=== PATIENT | female | born 1995 | race Caucasian/White ===

== ENCOUNTER 2025-01-29 15:21 | Outpatient (CLI) | payer OTHER, SELFPAY | END 2025-01-29 15:22 | disposition home or self-care (01) | PROVIDERS: Visit Provider Physician Assistant | DX: O24.410 Gestational diabetes mellitus in pregnancy, diet controlled (principal) | CPT/HCPCS: 86592 ==

== ENCOUNTER 2025-02-10 08:36 | Outpatient (CLI) | payer OTHER, SELFPAY ==
--- NOTE | 2025-02-10 09:15 | CRLHL7_ITS ---
For Patients: As a result of the Century Cures Act, medical imaging exams and procedure reports are released immediately into your electronic medical record. You may view this report before your referring provider. If you have questions, please contact your health care provider. OB ULTRASOUND LMP: 06/15/2024. JENNY by LMP: 03/22/2025. GA: 34 w, 2 d. Single. Comparison: Outside facility. INDICATION: Gestational diabetes. TECHNIQUE: Real time grayscale imaging of the fetus was performed. Transabdominal. CERVIX: Not visualized. POSITIONING: Vertex. AMNIOTIC FLUID: 6.9 cm. SDP (N: greater than 2 x 1 cm) PLACENTA: Technique: Transabdominal. PLACENTA POSITION: Fundal. DOPPLER: heart rate: 157 bpm. BIOMETRY: BPD: 8.1 cm. 32 w, 3 d, 7 percent. HC: 31.1 cm. 34 w, 6 d, 27 percent. AC: 29.7 cm. 33 w, 4 d, 35 percent. FL: 6.4 cm. 33 w, 0 d, 12 percent. FL/AC ratio: 21.53 percent. HC/AC ratio: 1.05. EFW: 2200 g. Weight: 4 lbs, 14 oz. age by this US: 33 w, 3 d. JENNY by this US: 03/28/2025. Percentile by JENNY: 22 percent. IMPRESSION: 1. Sonographic gestational age 33 weeks 3 days and sonographic due date 03/28/2025. Sonographic age is 6 days behind the clinical age. 2. Estimated weight 22nd percentile. Abdominal circumference 35th percentile. Alli Otto M.D. Diagnostic Radiologist [email or web address] MANUELA/neema bethea/Dictated by: Alli Otto MD @ 02/10/2025 9:37:00 AM (Electronically Signed)
== END 2025-02-10 08:37 | disposition home or self-care (01) ==
LOC: US 08:37
PROVIDERS: Visit Provider Physician Assistant
DX: O24.419 Gestational diabetes mellitus in pregnancy, unspecified control (principal); O36.5930 Maternal care for other known or suspected poor fetal growth, third trimester, not applicable or unspecified; Z3A.33 33 weeks gestation of pregnancy
CPT/HCPCS: 76815; 82728

== ENCOUNTER 2025-02-24 16:00 | Outpatient (CLI) | payer OTHER, SELFPAY | END 2025-02-24 16:01 | disposition home or self-care (01) | LOC: NFLDREF 03-02 08:30 | PROVIDERS: Visit Provider Obstetrics & Gynecology | DX: O23.43 Unspecified infection of urinary tract in pregnancy, third trimester (principal); R30.0 Dysuria; N39.0 Urinary tract infection, site not specified; Z3A.36 36 weeks gestation of pregnancy | CPT/HCPCS: 87081; 87086; 87653 ==

== ENCOUNTER 2025-03-12 13:51 | Outpatient (CLI) | payer OTHER, SELFPAY ==
--- NOTE | 2025-03-12 14:00 | CRLHL7_ITS ---
For Patients: As a result of the Century Cures Act, medical imaging exams and procedure reports are released immediately into your electronic medical record. You may view this report before your referring provider. If you have questions, please contact your health care provider. OBSTETRICAL ULTRASOUND ??? FOLLOW-UP, 03/12/2025 INDICATION: Gestational diabetes mellitus. Follow-up growth. CLINICAL HISTORY: LMP: 06/15/2024 JENNY by LMP: 03/22/2025 Gestational Age: 38 weeks 4 days COMPARISON: 02/10/2025 TECHNIQUE: Real-time singh-scale transabdominal imaging of the fetus was performed. FINDINGS: Fetus: Single Cervix: Not visualized positioning: Vertex Amniotic Fluid: 4.0 cm SDP Placenta technique: Transabdominal Placenta position: Fundal, left wall heart rate: 150 bpm BIOMETRY: BPD: 8.9 cm, 36 weeks 1 day, 16.4% HC: 33.2 cm, 37 weeks 6 days, 19.2% AC: 33.3 cm, 37 weeks 1 day, 31.3% FL: 6.9 cm, 35 weeks 4 days, 3.0% FL/AC Ratio: 20.8% HC/AC ratio: 1.0 EFW: 3028 grams; 6 lbs. 11 oz. age by this ultrasound: 36 weeks 5 days JENNY by this ultrasound: 04/04/2025 Percentile by JENNY: 22.4% COMMENTS: Placenta appears very calcified, grade 3. IMPRESSION: 1. Sonographic gestational age is 36 weeks 5 days and sonographic due date is 04/04/2025. Sonographic age is 13 days behind the clinical age. 2. Estimated weight is 22nd percentile. Abdominal circumference is 31st percentile. Femur length is 3rd percentile. 3. Grade 3 placenta. ALLI NORTON M.D. Diagnostic Radiologist [email or web address] Transcribed: 5:[address]/Dictated by: Alli Norton MD @ 03/12/2025 3:23:00 PM (Electronically Signed)
== END 2025-03-12 13:52 | disposition home or self-care (01) ==
LOC: US 13:51
PROVIDERS: Visit Provider Obstetrics & Gynecology
DX: O24.419 Gestational diabetes mellitus in pregnancy, unspecified control (principal); O36.5930 Maternal care for other known or suspected poor fetal growth, third trimester, not applicable or unspecified; Z3A.36 36 weeks gestation of pregnancy
CPT/HCPCS: 76816

== ENCOUNTER 2025-03-20 05:37 | Inpatient (IN) | payer OTHER, SELFPAY ==
[2025-03-20] VITALS (30 sets, daily range): BP systolic 113–135; BP diastolic 70–88; PULSE 69–97; RESP 12–20; TEMP 36.4–36.8; O2SAT 95–98; BMI 27.1
[2025-03-20 06:10] LABS: Hematocrit* 33.5 % (33.0-51.0); Hemoglobin* 10.9 gm/dL (12.0-16.0); Immature Granulocytes Abs Auto 0.05 K/uL (0.00-0.30); Immature Granulocytes Pct Auto 0.8 %; Lymphocytes Absolute Auto 1.33 K/uL (0.90-2.90); Mean Corpuscular HGB Conc 33 gm/dL (32-36); Mean Corpuscular Hemoglobin 28 pg (26-34); Mean Corpuscular Volume 85 fL (80-100); RDW Coefficient of Variation % 13.7 % (11.5-15.5); Red Blood Count* 3.96 m/uL (4.00-5.20); White Blood Count* 6.03 K/uL (4.50-11.00)
[2025-03-20 06:13] LABS: Slide Review Reflex No
--- NOTE | 2025-03-20 07:03 | W.PM.LDBA ---
Subjective History of Present Illness Date Seen: 03/20/25 Narrative: Patient is being admitted to Labor and Delivery for elective primary with bilateral salpingectomy. She is a 29 year old at 39 5/7 weeks gestation. Her full history and physical was dictated by Dr. Tillman on 03/05/25. Please see this for details. Specific Issues/Plans Partner: Roderick H&P: Dr. Tillman on 03/05/25 # Transfer at 32 weeks and 4 days # GDM A1 1 hour GTT: 149 3 hour GTT: 201H, 191H,168H, 91 Nutrition consult placed at transfer visit: completed 02/0302/10/25: She added protein snack in the evening, fastings are all normal. elevated readings. 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 Ruano for 03/17 = 39 2/7 wks [x] consent for pC/S and bilateral salpingectomy on 02/24 # history of depression, treated 3 years ago # mild anemia, hemoglobin 10.9 at 28 weeks Ferrous sulfate 325 Hemoglobin at 34 weeks: 10.5 Imagin. 09/02/2024: Single intrauterine , 11 weeks. heart rate 152. 2. 10/29/2024: No anomalies visualized. Posterior placenta. EFW 31st percentile 3. 02/10/2025: 34 weeks, 2 days. Cephalic, SDP 6.8 cm, EFW 22%, AC 35%, BPD 7%, HC 27%, FL 12%. 03/12: EFW 3028g at 22%ile - BPD 16%, HC 19%, AC 31%, FL 3%. Calcified placenta noted. Reactive NST. Vaccinations: COVID: declined 02/24/2025 Flu: [] Tdap: @30wk per pt - 01/14/2025 per [facility] RSV: 02/24/25 32 week mental health: PHQ 0, FABIANO 7 6 Last pap: 03/27/2024 labs: O positive, negative antibody screen, hemoglobin 13.9, platelets 294, rubella immune, normal hepatitis-B surface antigen, negative gonorrhea and chlamydia, varicella immune, TSH 2.5, RPR nonreactive. HIV negative, hep C negative. Urine culture negative 12/21/24: hgb 10.9, 1 hr GTT 149 OB - Problem Based A/P Additional Plan (1) : Status: Acute Plan Term . Undesired fertility. Patient confirms desire for elective primary with bilateral salpingectomy. Consent previously reviewed and signed. Delivery/Labor/Induction Plan Plan: Section OB Exam Physical Exam Vital signs: Pulse BP 83 120/78 03/20/25 06:08 03/20/25 06:08 Narrative: Physical exam: General: No acute distress Psych: Alert and oriented x3, full affect HEENT: Normocephalic, atraumatic Neck: No cervical adenopathy, no thyromegaly Heart: Regular rate and rhythm, no murmur rub or gallop Lungs: Clear to auscultation bilaterally Abdomen: Soft, nontender, gravid
--- NOTE | 2025-03-20 08:20 | P.OBPRC_ITS ---
Procedure Date of procedure: 03/20/25 Pre-op diagnosis: 39 57 weeks' gestation Undesired fertility Post-op diagnosis: same Procedure Done: Global (Elective primary low transverse with bilateral salpingectomy) Will [facility] bill your pro fee for this procedure?: Yes Blood Loss Measurement Type: QBL (250) Bakri Used: No IV fluids (mL): 800 Urine Output (mL): 100 Surgeon: Charu Ruano MD Findings: 1. Male infant, cephalic OT presentation, Apgars 9 & 9, weight pending at this time 2. Normal appearance of uterus, bilateral tubes and ovaries Procedure Name: Primary low transverse with bilateral salpingectomy Procedure Description: Patient was taken to the operating room with IV running. She received cefazolin in preoperative prophylaxis. Spinal anesthesia had previously been administered. Sy catheter was inserted. She was prepped and draped in the usual sterile fashion. Anesthesia was tested and found to be adequate. A low-transverse skin incision was made with a scalpel and carried through to the underlying layer of fascia with the scalpel. The subcutaneous fat was dissected off the underlying fascia bluntly. The fascia was nicked in the midline with a scalpel, and this incision was extended laterally with scissors. The rectus muscles were in the midline. Peritoneum was identified and entered bluntly. Bovie was used to widen this opening laterally. Hernando O retractor was inserted and tightened down, providing excellent visualization of the lower uterine segment. The bladder reflection was found to be well below the planned site for hysterotomy. Low-transverse uterine incision was made with a scalpel. Incision was widened bluntly. The infant's head was grasped through the hysterotomy and delivered with the help of fundal pressure. The remainder of the body delivered without incident. Cord was clamped and cut after 30 seconds. Infant was handed off to attending nurses. The placenta was delivered manually when gentle traction on the cord was not successful. The uterus was cleaned of all clots and debris with the dry lap pad. The uterus was exteriorized. The hysterotomy was reapproximated with 0 Vicryl in a running, locked fashion. The left tube was grasped with [place] clamps and elevated. The LigaSure exact device was used to amputate the tube at the cornua, and the tube was dissected away from the investing mesosalpinx moving medially to laterally. The blood supply to the fimbria was divided laterally and the tube was thus amputated and sent to pathology. Hemostasis was noted. This procedure was repeated on the patient's right side, moving laterally to medially. Bovie was used on a site of oozing to obtain hemostasis. The adnexa were examined and noted to be normal in appearance. The cul-de-sac was cleansed with laparotomy sponge, removing any further clots and debris. The uterus was returned to the abdomen. The hysterotomy was examined again and fo und to be hemostatic. The Hernando O retractor was removed. The gutters were cleared of all clots and debris with a laparotomy sponge. The hysterotomy was reexamined once again and found to be hemostatic, though there was some oozing along the reflection of the uterovesical peritoneum that was managed with Bovie. The peritoneum was reapproximated with 2 0 Vicryl in a running fashion. The rectus muscles were examined and found to be hemostatic. The fascia was reapproximated with 0 Vicryl in a running fashion. Subcutaneous fat was irrigated and Bovie used on oozing vessels. The subcutaneous fat was reapproximated with 2 0 plain gut suture in an interrupted fashion. The skin was closed with a subcuticular stitch of 4-0 Monocryl. Surgical glue was applied above this. Patient tolerated procedure well was taken to recovery area in stable condition. Complications: None Pathology: specimen obtained, sent to pathology (bilateral Fallopian tubes) Surgery Debrief Performed: Yes Surgery Debrief Comment: Postoperative debrief was verbalized with OR staff, including a verification of pathology specimens to be sent as described above. Disposition: floor Thor total score - 1 minute: 9 total score - 5 minute: 9
--- NOTE | 2025-03-20 08:44 | P.ANES_ITS ---
Anesthesia Charges Start Date/Time Anesthesia Start Date: 03/20/25 Anesthesia Start Time: 07:20 Stop Date/Time Anesthesia Stop Date: 03/20/25 Anesthesia Stop Time: 08:38 Coding CPT Codes CPT Codes: ANESTH CS DELIVERY - 90148 ([id number]) P2 - PATIENT W/MILD SYST DISEASE, QK - REPORT DEVELOPER 2-4 CNCRNT ANES PROC, QX - SURGICAL SERVICES ASSISTANT SVC W/ MD MED DIRECTION
--- NOTE | 2025-03-20 08:44 | W.ANESCHARGE ---
Anesthesia Charges Start Date/Time Anesthesia Start Date: 03/20/25 Anesthesia Start Time: 07:20 Stop Date/Time Anesthesia Stop Date: 03/20/25 Anesthesia Stop Time: 08:38 Coding CPT Codes CPT Codes: ANESTH CS DELIVERY - 58406 ([id number]) P2 - PATIENT W/MILD SYST DISEASE, QK - BARREL HEADER 2-4 CNCRNT ANES PROC, QX - DEAN SVC W/ MD MED DIRECTION
--- NOTE | 2025-03-20 08:45 | W.PM.NB ---
Nerve Block Nerve Block Time Seen by Provider: 08:28 Date Seen: 03/20/25 Type of block requested by surgeon for post-operative analgesia: TAP Side: bilateral Time out performed: Yes Verification of patient name: Yes Verification of date of : Yes Name of person performing procedure: Ruslan Hackett Continuous monitoring Was continuous monitoring of O2 sat, B/P, cardiac technologist, recorded every 15 minutes?: Yes Procedure Checklist: sterile prep, needles and gloves Ultrasound guided. Images saved: Yes Medications given in 5ml increments after negative aspiration: Marcaine %: 0.25 mL: 30 Needle gauge: 20 and Exparel mL: 10 Needle gauge: 20 Patient tolerated procedure well: Yes Block Charges Block Charge (with Pro Fee): TAP Unilateral Use of Ultrasound Machine for Block: Yes- US Guidance/pain block
--- NOTE | 2025-03-20 09:55 | P.ANES_ITS ---
Anesthesia Charges Start Date/Time Anesthesia Start Date: 03/20/25 Anesthesia Start Time: 07:20 Stop Date/Time Anesthesia Stop Date: 03/20/25 Anesthesia Stop Time: 08:38 Coding CPT Codes CPT Codes: ANESTH CS DELIVERY - 21757 ([id number]) QK - SUPERINTENDENT LAUNDRY 2-4 CNCRNT ANES PROC, QX - PREFORMER IMPREGNATED FABRICS SVC W/ MD MED DIRECTION, P2 - PATIENT W/MILD SYST DISEASE
--- NOTE | 2025-03-20 09:55 | W.ANESCHARGE ---
Anesthesia Charges Start Date/Time Anesthesia Start Date: 03/20/25 Anesthesia Start Time: 07:20 Stop Date/Time Anesthesia Stop Date: 03/20/25 Anesthesia Stop Time: 08:38 Coding CPT Codes CPT Codes: ANESTH CS DELIVERY - 00838 ([id number]) QK - SWITCHGEAR REPAIRER 2-4 CNCRNT ANES PROC, QX - CASING INSPECTOR SVC W/ MD MED DIRECTION, P2 - PATIENT W/MILD SYST DISEASE
[2025-03-20] MEDS: DOCUSATE SODIUM 100 MG CAPSULE PO (14:13)
[2025-03-20] MEDS: ACETAMINOPHEN 500 MG TABLET 1000 MG PO (17:36)
[2025-03-21] VITALS (12 sets, daily range): BP systolic 113–126; BP diastolic 70–78; PULSE 69–90; RESP 16–20; TEMP 36.4–37.2; O2SAT 96–98
[2025-03-21] MEDS: ACETAMINOPHEN 500 MG TABLET 1000 MG PO ×3 (00:14→19:47)
[2025-03-21 05:51] LABS: Hemoglobin* 8.6 gm/dL (12.0-16.0)
[2025-03-21] MEDS: DOCUSATE SODIUM 100 MG CAPSULE PO (08:35)
--- NOTE | 2025-03-21 10:03 | P.OBPN_ITS ---
OB - PN:Subj Subjective Date Seen: 03/21/25 Narrative: David is a 29-year-old seen on postop day 1 from a primary delivery with bilateral salpingectomy. was complicated by GDM A1, pelvic floor hypertonicity, depression and anemia. Her was uncomplicated. Patient notes she is feeling very well. Her pain is well controlled, on ibuprofen and Tylenol at present. Currently, she rates it a 4/10 in severity and only really with transition movements. She is tolerating p.o. intake without nausea or vomiting. Voiding spontaneously. Passes flatus, no bowel movement yet. She has been up to ambulate several times, denies dizziness/lightheadedness, chest pain or dyspnea. Lochia is described as small volume. David is baby Tahir successfully. The family is bonding appropriately. OB - PN: Obj Exam Physical Exam: Vital signs: Temp Pulse Resp BP Pulse Ox O2 Del Method 97.6 F 77 16 117/78 98 Room Air 03/21/25 07:49 03/21/25 07:49 03/21/25 07:49 03/21/25 07:49 03/21/25 07:49 03/21/25 07:49 Narrative: General: Alert and oriented, no acute distress Psych: Appropriate mood and affect Abdomen: Soft, nondistended. Mild tenderness to palpation in the lower quadrants, consistent with postoperative state. Fundus palpates firm, 1 below umbilicus. No rebound or guarding. Surgical dressing is in place, clean/dry. Extremities: No significant lower extremity edema. No calf erythema or t enderness. Hemoglobin this AM is 8.6 from 10.9 pre-operatively OB - PN: Obj Data Labs Labs: Laboratory Results - last 24 hr 03/21/25 05:29 Hgb 8.6 L OB - PN: A/P Delivery Assessment and Plan (1) : Status: Acute Plan David is a 29yo seen on POD1 from pC/S and bilateral salpingectomy for maternal request in the setting of chronic pelvic pain due to pelvic floor hypertonicity. was otherwise complicated by GDM A1, anemia, history of mood disorder. Her case was uncomplicated. David has done well in the postoperative period. Pain is well controlled, ambulates without dizziness/lightheadedness, tolerating p.o. intake, voiding spontaneously and passing gas. AM hemoglobin was noted to be 8.6 from 10.9 preop. P.o. iron ordered. Patient is entirely asymptomatic, meeting appropriate milestones and has normal vital signs. Plan to repeat hemoglobin with change in clinical status or vital signs. Recommend continued progression through postoperative milestones, support and bonding. Anticipate dismissal to home tomorrow versus postop day 3.
[2025-03-21] MEDS: LANOLIN CREAM 1 APPLIC TOPICAL (17:32)
[2025-03-21] MEDS: IBUPROFEN 600 MG TABLET PO (21:07)
[2025-03-22 00:05] VITALS: BP 130/84; PULSE 84; RESP 16; TEMP 36.8; O2SAT 97
[2025-03-22] MEDS: SIMETHICONE 80 MG TAB.CHEW PO ×2 (00:28→20:15)
[2025-03-22] MEDS: ACETAMINOPHEN 500 MG TABLET 1000 MG PO ×4 (02:10→22:53)
[2025-03-22] MEDS: IBUPROFEN 600 MG TABLET PO ×3 (04:33→20:10)
[2025-03-22 08:30] VITALS: BP 121/81; PULSE 84; RESP 16; TEMP 36.8; O2SAT 97
[2025-03-22] MEDS: DOCUSATE SODIUM 100 MG CAPSULE PO (08:34)
--- NOTE | 2025-03-22 10:05 | PM.OBPNVD1 ---
OB - PN:Subj Subjective Date Seen: 03/22/25 Narrative: David is a 29-year-old seen on postop day 2 from a primary delivery with bilateral salpingectomy. was complicated by GDM A1, pelvic floor hypertonicity, depression and anemia. Her was uncomplicated. Patient notes she is feeling well, she was able to get some rest overnight. Her pain is overall well controlled, greatest with transition movements. She is maintained on ibuprofen and Tylenol at present, has not required any oxycodone. She is tolerating p.o. intake without nausea or vomiting. Voiding spontaneously. Passes flatus, no bowel movement yet. She has been up to ambulate several times, denies dizziness/lightheadedness, chest pain or dyspnea. Lochia is described as small volume. David is baby Tahir, working on feeding support. The family is bonding appropriately. She would like to discharge to home tomorrow in order to continue to PP recovery/ support. OB - PN: Obj Exam Physical Exam: Vital signs: Temp Pulse Resp BP Pulse Ox O2 Del Method 98.2 F 84 16 121/81 97 Room Air 03/22/25 08:30 03/22/25 08:30 03/22/25 08:30 03/22/25 08:30 03/22/25 08:30 03/22/25 08:30 Narrative: General: Alert and oriented, no acute distress Psych: Appropriate mood and affect Abdomen: Soft, nondistended. Mild tenderness to palpation in the lower quadrants, consistent with postoperative state. Fundus palpates firm, 1 below umbilicus. No rebound or guarding. Incision is well approximated, overlying surgical glue noted. No separation, erythema or ecchymosis. Extremities: No significant lower extremity edema. No calf erythema or tenderness. OB - PN: Obj Data Labs Labs: Laboratory Results - last 24 hr 03/20/25 05:59 RPR Screen Non Reactive OB - PN: A/P Delivery Assessment and Plan (1) : Status: Acute Plan David is a 29yo seen on POD2 from pC/S and bilateral salpingectomy for maternal request in the setting of chronic pelvic pain due to pelvic floor hypertonicity. was otherwise complicated by GDM A1, anemia, history of mood disorder. Her case was uncomplicated. David has done well in the postoperative period. Pain is well controlled on ibuprofen/tylenol, has oxycodone available PRN. Recommend abdominal binder to help with transition movements. Hgb yesterday was 8.6, VS entirely WNL and patient is meeting all milestones. Ambulates without dizziness/lightheadedness, tolerating p.o. intake, voiding spontaneously and passing gas. P.o. iron ordered. Recommend continued progression through postoperative milestones, pain control, support and bonding. Desires discharge to home on POD3, tomorrow.
[2025-03-22 16:40] VITALS: BP 118/80; PULSE 88; RESP 16; TEMP 36.6; O2SAT 97
[2025-03-22 20:24] VITALS: BP 124/80; PULSE 76; RESP 16; TEMP 36.6; O2SAT 97
[2025-03-23 01:17] VITALS: BP 123/80; PULSE 73; RESP 16; TEMP 36.6; O2SAT 97
[2025-03-23] MEDS: IBUPROFEN 600 MG TABLET PO ×2 (01:42→09:15)
[2025-03-23] MEDS: ACETAMINOPHEN 500 MG TABLET 1000 MG PO ×2 (05:16→11:32)
--- NOTE | 2025-03-23 07:47 | P.DS_ITS ---
DS: Providers Provider Time Seen by Provider: 09:00 Date Seen: 03/23/25 Date of admission: 03/20/25 05:37 Primary care physician: Not a Local Provider Admitting Clinician: Charu Ruano MD Attending Physician on discharge: Andie WALLS Date of Discharge: 03/23/25 DS: Diagnosis Discharge Diagnosis (1) care following delivery: Status: Acute (2) Anemia: Status: Acute (3) Anxiety: Status: Acute (4) Depression: Status: Acute (5) Status post bilateral salpingectomy: Status: Acute (6) Lactating mother: Status: Acute Exam Narrative: Exam Narrative: GENERAL APPEARANCE:? normal affect, alert, no distress MOOD:? anxious CHEST:? clear to auscultation HEART:? regular rate and rhythm ABDOMEN:? soft, appropriately tender the uterine fundus is 2 cm below Umbilicus, Midline and is appropriate for the stage of recovery. Incision: low transverse incision is approximated with surgical glue covering. No drainage, no redness. EXTREMITIES:? normal and no edema Const: Vital Signs, click to edit/add: Vital Signs - 24 hr 03/22/25 08:30 03/22/25 16:40 03/22/25 20:24 Temperature 98.2 F 97.8 F 97.9 F Pulse Rate [Right Pulse Oximeter] 84 88 76 Respiratory Rate 16 16 16 Blood Pressure [Ri ght Arm] 121/81 118/80 124/80 Pulse Oximetry 97 97 97 Oxygen Delivery Me thod Room Air Room Air Room Air 03/23/25 01:17 Temperature 97.8 F Pulse Rate [Right Pulse Oximeter] 73 Respiratory Rate 16 Blood Pressure [Ri ght Arm] 123/80 Pulse Oximetry 97 Oxygen Delivery Me thod Room Air OB - DS: Summary Hospital Course Hospital Course: David is a 29 y.o. G 1 P 1 who was admitted to [facility] for a scheduled primary elective c section for hypertonic uterus.? She had a section with bilateral salpingectomy that was uncomplicated. Pain is controlled with tylenol and ibuprofen. Comfortable when sitting. Pain 6-8/10 when changing position, particularly getting in and out of bed. Everything she's saying sounds normal but she is very focused on it. She will try an oxycodone today while still in the hospital and see how that helps. Also recommended she wear an abdominal binder when getting up and asked nurse to assist. She is breast feeding and concerned about baby getting enough. Would like to supplement a little bit to keep him from losing any more weight. ?David had GDMA1. She did the 2 hour GTT this morning and passed! Vitals have been stable.? She has remained afebrile.? Has a good appetite, is tolerating a general diet.? She is voiding without difficulty.? She is passing gas and has not had a bowel movement.?Is using colace. Hemoglobin is 8.6 after . She is taking iron supplement every other day and will continue to do so. She is ambulating and denies any dizziness.?Has small amount of rubra lochia. David has a history of anxiety and depression. She is feeling anxious right now, primarily about her baby- that he is still on his back and breathing if she falls asleep and that he is eating enough. She also says she likes to be busy and out of their house but realizes she won't be able to do that as much with a and worries her depression and anxiety will worsen once home. Her partner will be home with her until Sunday then it will be her and baby. She would like to start a medication to prevent worsening mood. She was on Sertraline many years ago and did not like it. After discussing with patient will start Lexapro 10mg daily. David had a bilateral salpingectomy with the .? ?? Problems: anxiety, pain, anemia? ?? plan:? Discharge home with baby.? Follow up in 2 weeks and 6 weeks.? , follow up with . Ok to supplement if desired? Hgb 8.6. resume iron supplement ordered orally every other day Start Lexapro 10mg daily for anxiety and depression f/u in 2 weeks or sooner if needed Continue colace stool softener until having regular, easy bowel movement. May use miralax daily if need something more than colace Andie Koo APRN, CNM, was present for visit and have reviewed and agree with documentation by the Certified Nurse Midwifery Student.? Peripartum Data Infant delivery method: Primary C/S; Non-Labored Laceration description: None Episiotomy description: None Procedures: Procedures Operation Date: 03/20/25 07:15 Actual Procedure Side Surgeon p Primary Section, Bilateral Salpingectomy Charu Ruano MD Procedures: tubal ligation/salpingectomy [place] Gender: Male Discharge Plan: Home Status at Discharge Cognitive/behavioral status at discharge: Anxious Functional status at discharge: independent ambulation Overall status at discharge: patient is progressing back to baseline Time Spent with Patient Time attestation: Total time spent providing and/or coordinating discharge services: Time spent: Less than 30 minutes Discharge Plan Discharge Disposition: Home, Self-Care Date of Admission: 03/20/25 05:37 Attending Provider on Discharge: Roro Downey Primary Care Provider: Provider,Not a Local Condition: Stable Anticipated Discharge Date/Time: 03/23/25 09:45 Discharge Medications: New docusate sodium 100 mg Capsule 100 mg PO DAILY Qty: 60 0RF oxycodone 5 mg Tablet 5 - 10 mg PO Q4H PRN (Reason: Pain) Qty: 6 0RF escitalopram oxalate 10 mg tablet 10 mg PO DAILY Qty: 60 2RF Continued IUF-mobr-ER-omega 3 fatty no.1 27-1-300 mg capsule 1 cap PO DAILY ferrous sulfate 325 mg (65 mg iron) tablet 325 mg PO Q OTHER DAY Qty: 60 1RF Discontinued (DME) Accu-Chek Guide test strips Strip See Rx Instructions .Route Qty: 100 1RF Rx Instructions: Test blood sugar QID (4 times daily) famotidine 20 mg tablet 20 mg PO QDAY Discharge Orders: Discharge Order (Routine); Ordered 03/23/25 Ordered By: Roro Downey Patient Education: Bupivacaine Liposome (By injection), OB Over the Counter Medication Information, OB /Breast Feeding Additional Instructions: Discharge instructions were reviewed with the patient including signs and symptoms of infection and home going medications Lifting Restrictions: 20 pounds for 6 weeks No not submerge incision under water X 2 weeks? Nothing vaginally for 6 weeks: no tampons or intercourse Do not drive while taking narcotic pain medication(s) Off Work or School for 6 weeks Symptoms to report to doctor: * Bleeding that saturates more than one pad per hour * Passing clots larger than the size of a golf ball * Pain not relieved by prescribed medication * Fever above 100.4 degrees Fahrenheit * A foul vaginal odor * Difficulty in emotions, mood, and functions * Thoughts of hurting yourself and/or * Painful, reddened area in your breast * Any drainage, redness, or tenderness in your IV/epidural site * Severe headache that doesn't improve after taking medications * Changes in vision, including temporary loss of vision, blurred vision, and/or light sensitivity * Upper abdominal pain (usually under ribs on the right side) * Decrease in urination or painful, frequent urinating * Chest pain * Shortness of breath * Tenderness or pain with redness and/swelling in the calf(s) of your leg 2-week visit: incision check, discuss infant feeding concerns, review control options and screen for anxiety/depression. 6-week visit for an annual exam. consultation services are available to all mothers and babies for the first year after delivery.? To make an appointment, please call [phone]. Activity Level: No strenuous activity Discharge Diet: Regular Follow Up Appointments: [facility] [Other] Forms: Patient Belongings, [facility] Info Instructions
[2025-03-23 08:27] LABS: Glucose 2 Hour 144 mg/dl (70-155)
[2025-03-23 09:13] VITALS: BP 117/69; PULSE 82; RESP 16; O2SAT 98
[2025-03-23] MEDS: DOCUSATE SODIUM 100 MG CAPSULE PO (09:15)
== END 2025-03-23 12:15 | disposition home or self-care (01) | DRG 785 ==
PROVIDERS: Admitting Provider Obstetrics & Gynecology; Visit Provider Obstetrics & Gynecology
PROC: 10D00Z1 Extraction of Products of Conception, Low, Open Approach (ICD-10-PCS; CPT 59514; principal; 2025-03-20 07:15)
DX: O24.429 Gestational diabetes mellitus in childbirth, unspecified control (principal); Z30.2 Encounter for sterilization; O99.02 Anemia complicating childbirth; D64.9 Anemia, unspecified; M62.838 Other muscle spasm; G89.18 Other acute postprocedural pain; G89.29 Other chronic pain; R10.20 Pelvic and perineal pain unspecified side; O99.344 Other mental disorders complicating childbirth; F41.9 Anxiety disorder, unspecified; F32.A Depression, unspecified; Z3A.39 39 weeks gestation of pregnancy; Z37.0 Single live birth
CPT/HCPCS: 01961; 36415; 64488; 76942; 82947; 82950; 82962; 85018; 85025; 86592; 86850; 86900; 86901; A4314; A9270; J0690; J1100; J1885; J2274; J2405; J2590; J3010

== ENCOUNTER 2025-05-01 11:31 | Outpatient (CLI) | payer OTHER, SELFPAY | END 2025-05-01 11:32 | disposition home or self-care (01) | LOC: NFLDREF 05-06 18:39 | PROVIDERS: Visit Provider Physician Assistant | DX: R39.89 Other symptoms and signs involving the genitourinary system (principal) | CPT/HCPCS: 87086 ==